=== PATIENT | female | born 1960 | race Caucasian/White ===

== ENCOUNTER 2017-10-25 13:35 | Emergency (ER) | payer BC ==
[2017-10-25 13:44] VITALS: BP 152/89; PULSE 87; TEMP 98.3; BMI 28.3
--- NOTE | 2017-10-25 14:28 | PDOC ---
History of Present Illness - General History Source: Patient Exam Limitations: No Limitations - History of Present Illness Initial Comments: 10/25/17 14:47 The patient is a 56 year old female, with a significant past medical history of , who presents to the emergency department with 2 days of intermittent right inguinal pain, abdominal bloating, and nausea. The patient states the pain comes and goes, lasting for minutes at a time and occasionally radiates to her right lower back. She states the pain never completely resolves and reports there is a dull, lingering pain. The patient reports nausea associated with her pain, but denies vomiting. She reportedly took Tylenol last night which significantly helped her pain. She states she thought she might have been constipated, took a laxative, had a normal bowel movement, however, was still experiencing pain. She states she feels her stomach is bloated. She reportedly experienced this about 6 months ago, but states it resolved on its own at the time. The patient denies chest pain, shortness of breath, headache and dizziness. The patient denies fever, chills, vomit, diarrhea and constipation. The patient denies dysuria, frequency, urgency and hematuria. Allergies: NKDA Past surgical history: total hysterectomy and oophorectomy s/p uterine fibroid removal PCP - Dr. Evelyn Hagan <Rosemary Escalante - Last Filed: 10/25/17 14:45> <Cain Preston - Last Filed: 10/25/17 17:41> - General Chief Complaint: Pain Stated Complaint: ABD PAIN, NAUSEA Time Seen by Provider: 10/25/17 13:43 Past History <Rosemary Escalante - Last Filed: 10/25/17 14:45> - Past Medical History COPD: No - Surgical History Abdominal Surgery: Yes (LAP IVF) - Suicide/Smoking/Psychosocial Hx Smoking History: Never smoked Hx Alcohol Use: No Drug/Substance Use Hx: No <Cain Preston - Last Filed: 10/25/17 17:41> - Past Medical History Allergies/Adverse Reactions: Allergies Allergy/AdvReac Type Severity Reaction Status Date / Time No Known Allergies Allergy Verified 10/25/17 13:39 Home Medications: Ambulatory Orders Multivitamin [One Daily] 1 each PO DAILY 10/25/17 Review of Systems - Review of Systems Able to Perform ROS?: Yes Comments:: 10/25/17 14:47 CONSTITUTIONAL: No reported: Fever, Chills, Diaphoresis, Generalized Weakness, Malaise, Loss of Appetite HEENT: No reported: Rhinorrhea, Nasal Congestion, Throat Pain, Throat Swelling, Difficulty Swallowing, Mouth Swelling, Ear Pain, Eye Pain, Visual Changes CARDIOVASCULAR: No reported: Chest Pain, Syncope, Palpitations, Irregular Heart Rate, Lightheadedness, Peripheral Edema RESPIRATORY: No reported: Cough, Shortness of Breath, SOB with Exertion, Orthopnea, Wheezing , Stridor, Hemoptysis GASTROINTESTINAL: (+) abdominal bloating, nausea, right inguinal pain. No reported: Abdominal pain , Vomiting, Diarrhea, Constipation, Melena, Hematochezia GENITOURINARY: (+) right inguinal pain with radiation to right lower back. No reported: Dysuria , Frequency, Urgency, Hesitancy, Flank Pain, Genital Pain MUSCULOSKELETAL: No reported: Myalgia, Arthralgia, Joint Swelling, Neck Pain SKIN: No reported: Rash, Itching, Pallor HEMEATOLOGIC/IMMUNOLOGIC: No reported: Easy Bleeding, Easy Bruising, Lymphadenopathy, Frequent infections ENDOCRINE: No reported: Unexplained Weight Gain, Unexplained Weight Loss, Heat Intolerance , Cold Intolerance NEUROLOGIC: No reported: Headache, Focal Weakness, Paresthesias, Vertigo, Lightheadedness, Unsteady Gait, Seizure, Mental Status Changes, Incontinence PSYCHIATRIC: No reported: Anxiety, Depression <Rosemary Escalante - Last Filed: 10/25/17 14:45> *Physical Exam - Vital Signs Last Vital Signs Temp Pulse Resp BP Pulse Ox 98.3 F 87 18 152/89 97 10/25/17 13:35 10/25/17 13:35 10/25/17 13:35 10/25/17 13:35 10/25/17 13:35 - Physical Exam Comments: 10/25/17 14:49 GENERAL: The patient is awake, alert, and fully oriented, Nontoxic - in no acute distress. HEAD: Normocephalic, atraumatic. EYES: extraocular movements intact, sclera anicteric, conjunctiva clear. ENT: Normal voice, Moist mucous membranes. NECK: Normal range of motion, supple LUNGS: Breath sounds equal, clear to auscultation bilaterally. No wheezes, no rhonchi, no rales. HEART: Regular rate and rhythm, without murmur, rub or gallop. ABDOMEN: Soft, nontender, normoactive bowel sounds. No guarding, no rebound.No CVA tenderness EXTREMITIES: Normal range of motion, no edema. No clubbing or cyanosis. No cords , erythema, or tenderness. NEUROLOGICAL: No facial assymetry, Normal speech, PSYCH: Normal mood, normal affect. SKIN: Warm, Dry, normal turgor, <Rosemary Escalante - Last Filed: 10/25/17 14:45> - Vital Signs Last Vital Signs Temp Pulse Resp BP Pulse Ox 98.3 F 87 18 152/89 97 10/25/17 13:35 10/25/17 13:35 10/25/17 13:35 10/25/17 13:35 10/25/17 13:35 <Cain Preston - Last Filed: 10/25/17 17:41> ED Treatment Course - LABORATORY CBC & Chemistry Diagram: 10/25/17 15:03 10/25/17 15:03 <Cain Preston - Last Filed: 10/25/17 17:41> Medical Decision Making - Medical Decision Making 10/25/17 14:38 56y F presents with RLQ pain that is intermittent for several days. The patient notes the pain is intermitten and radiates up to her R flank, associated with nausea without vomiting, is sharp in nature. No associated fever/chills, not worse with movement. on exam her exam is unremarakble and she is in no distress abd reveals no tenderness, no cva tendreness ddx includes kidney stones, appendicitis, msk pain pt is sp hysterectomy and ooperhectomy, so not torsion will ck UA,cbc cmp pt declines pain meds currently A portion of this note was documented by scribe services under my direction. I have reviewed the details of the note, within reason, and agree with the documentation with the following case summary and management plan written by me 10/25/17 17:34 The patient's blood work was reviewed The patient's CT abdomen was also reviewed there are no signs of acute pathology. 10/25/17 17:39 pt feeling improved will dc the pt with pm dfu return precautions were discussed Discharge notI discussed the physical exam findings, ancillary test results and final diagnoses with the patient. I answered all of the patient's questions. The patient was satisfied with the care received and felt comfortable with the discharge plan and treatment plan. The patient will call their primary care physician within 24 hours to arrange follow-up and will return to the Emergency Department with any new, persistent or worsening symptoms. <Cain Preston - Last Filed: 10/25/17 17:41> *DC/Admit/Observation/Transfer - Attestations Scribe Attestion: 10/25/17 14:49 Documentation prepared by Rosemary Escalante, acting as medical typist for Cain Preston MD <Rosemary Escalante - Last Filed: 10/25/17 14:45> - Discharge Dispostion Admit: No <Cain Preston - Last Filed: 10/25/17 17:41> Diagnosis at time of Disposition: Abdominal pain Qualifiers: Abdominal location: right lower quadrant Qualified Code(s): R10.31 - Right lower quadrant pain - Discharge Dispostion Disposition: HOME Condition at time of disposition: Improved - Referrals Referrals: doctor rowena [Other] - Patient Instructions Printed Discharge Instructions: DI for Abdominal Pain-Adult Additional Instructions: Return to the emergency department immediately with ANY new, persistent or worsening symptoms including worsening abdominal pain, fevers, inability to tolerate oral intake, chest pain, shortness of breath or any other concerns. Your CAT scan today is negative for any appendicitis or kidney stone. The exact cause of your abdominal pain is not clear to may be due to muscle strain. Take Motrin or Tylenol as needed for the pain, avoid any heavy lifting for several days Stay well hydrated. You MUST call and follow up with your doctor in 4-5 days for further evaluation of your symptoms. Your emergency department visit is not complete without a followup with your doctor for reevaluation. Please make sure your doctor reviews the results of your emergency evaluation. Print Language: KHMER
[2017-10-25 15:12] LABS: URINE APPEARANCE Clear; URINE BILIRUBIN Negative (NEGATIVE); URINE BLOOD Negative (NEGATIVE); URINE COLOR YELLOW; URINE GLUCOSE (UA) Negative (NEGATIVE); URINE KETONE Negative (NEGATIVE); URINE LEUK ESTERASE TRACE (NEGATIVE); URINE NITRITE Negative (NEGATIVE); URINE PROTEIN Negative (NEGATIVE); URINE UROBILINOGEN 0.2 (0.2-1.0)
[2017-10-25 15:14] LABS: BASO % 0.4 % (0-2.0); EOS % 0.8 % (0-4.5); HEMATOCRIT 46.6 % (32.4-45.2); HEMOGLOBIN 16.3 GM/dl (10.7-15.3); LYMPH % 19.6 % (8-40); MCH 29.9 pg (25.7-33.7); MCHC 34.9 g/dl (32.0-36.0); MEAN CELL VOLUME 85.5 fl (80-96); MEAN PLT VOLUME 7.5 fl (7.5-11.1); MONO % 3.8 % (3.8-10.2); NEUT % 75.4 % (42.8-82.8); PLATELET COUNT 312 K/MM3 (134-434); RBC 5.45 M/mm3 (3.60-5.2); RDW 11.9 % (11.6-15.6); WHITE BLOOD COUNT 9.3 K/mm3 (4.0-10.8)
[2017-10-25 15:26] LABS: ALBUMIN 4.4 g/dl (3.5-5.0); ALK PHOS 72 U/L (32-92); ANION GAP 7 (8-16); BILIRUBIN,TOTAL 0.3 mg/dl (0.2-1.0); BLOOD UREA NITROGEN 15 mg/dl (7-18); CALCIUM 9.4 mg/dl (8.4-10.2); CHLORIDE 103 mmol/L (98-107); CO2 25 mmol/L (22-28); CREATININE 0.6 mg/dl (0.6-1.3); GLUCOSE,RANDOM 84 mg/dl (74-106); POTASSIUM 3.7 mmol/L (3.5-5.1); SGOT/AST 21 U/L (10-42); SGPT/ALT 29 U/L (10-40); SODIUM 135 mmol/L (136-145); TOT PROT 7.6 g/dl (6.4-8.3)
[2017-10-25] MEDS ORDERED: SODIUM CHLORIDE 1,000 ML IV ONE (15:32)
[2017-10-25 17:53] LABS: URINE BACTERIA FEW /hpf (NEGATIVE); URINE RBC 0-2 /hpf (0-3)
== END 2017-10-25 18:04 | disposition home or self-care (01) ==
LOC: FER 13:35
PROC: 3E0337Z Introduction of Electrolytic and Water Balance Substance into Peripheral Vein, Percutaneous Approach (ICD-10-PCS; principal; 2017-10-25)
DX: R10.31 Right lower quadrant pain (principal)
CPT/HCPCS: 36415; 74176-TC; 80053; 81003; 81015; 85025; 99284-25